=== PATIENT | male | born 1990 | race Two or more races ===

== ENCOUNTER 2021-02-02 18:13 | Emergency (ER) | payer SELFPAY ==
[~2021-02-02] VITALS: Ht 170.2 cm; Wt 70.5 kg
[2021-02-02] MEDS ORDERED: LIDOCAINE 1%/EPI 1:100,000 20 ML VIAL. INJ ONE (19:00)
[2021-02-02] MEDS ORDERED: DIPH,PERTUSS(ACELL),TET VAC/PF 0.5 ML SYRINGE. VAX IM ONE (19:00)
--- NOTE | 2021-02-02 19:06 | PHYS DOC ---
Past Medical History Past Medical History: No Pertinent History (CALLI SAM APRN) Past Surgical History: No Surgical History (CALLI SAM APRN) Smoking Status: Never Smoker Alcohol Use: Rarely (CALLI SAM APRN) General Adult EDM: Chief Complaint: LACERATION/AVULSION HPI: HPI: Patient is a 30 year old male who presents to the ED today with left ash laceration, patient got cut by a sheet metal. (CALLI SAM APRN) Review of Systems: Review of Systems: Constitutional: Denies fever or chills. [] Musculoskeletal: Denies back pain or joint pain. [] Integument: Reports left ash laceration Neurologic: Denies headache, focal weakness or sensory changes. [] Psychiatric: Denies depression or anxiety. [] (CALLI SAM APRN) Heart Score: C/O Chest Pain: N/A Risk Factors: Risk Factors: DM, Current or recent (<one month) smoker, HTN, HLP, family history of CAD, obesity. Risk Scores: Score 0 - 3: 2.5% MACE over next 6 weeks - Discharge Home Score 4 - 6: 20.3% MACE over next 6 weeks - Admit for Clinical Observation Score 7 - 10: 72.7% MACE over next 6 weeks - Early Invasive Strategies (CALLI SAM APRN) Current Medications: Current Medications Medications (Trade) Dose Ordered Sig/Jacob Start Time Stop Time Status Last Admin Dose Admin Diphtheria/ Tetanus/Acell Pertussis (ADACEL TDap SYRINGE) 0.5 ml ONCE ONCE 02/02/21 19:00 02/02/21 19:01 UNV Lidocaine/ Epinephrine (LIDOCAINE 1%-EPI 1:100,000 Multi-Dose) 20 ml 1X ONCE 02/02/21 19:00 02/02/21 19:01 DC (CALLI SAM CUSTOMS AGENT) Allergies: Allergies: Allergies Coded Allergies Type Severity Reaction Last Updated Verified No Known Drug Allergies 02/02/21 No (CALLI SAM APRN) Physical Exam: PE: Constitutional: Well developed, well nourished, no acute distress, non-toxic appearance. [] Skin: Left ash with 2 lacerations. One laceration is roughly 8 cm long in C shape. The other laceration is roughly 2 cm long. There is no obvious tendon involvement. Full range of motion to the left lower extremity. +2 left pedal pulse. Cap refill less than 2 seconds to the left toes Back: No tenderness, no CVA tenderness. [] Extremities: No tenderness, no cyanosis, no clubbing, ROM intact, no edema. [] Neurologic: Alert and oriented X 3, normal motor function, normal sensory function, no focal deficits noted. [] Psychologic: Affect normal, judgement normal, mood normal. [] (CALLI SAM APRN) Current Patient Data: Vital Signs: Vital Signs Date Time Temp Pulse Resp B/P (MAP) Pulse Ox O2 Delivery O2 Flow Rate FiO2 02/02/21 18:50 98.2 93 18 129/58 (81) 97 Room Air 98.2 (CALLI SAM APRN) EKG: EKG: [] (CALLI SAM APRN) Radiology/Procedures: Radiology/Procedures: Laceration/Wound Repair Laceration/Wound Repair : [] Wound Location: Left lower extremity Wound's Depth, Shape: C-shaped and horizontal Wound Length (cm): 8 cm long and 2 cm long Wound Explored: clean Irrigated w/ Saline (ccs): 100 Betadine Prep?: Yes Anesthesia: Lidocaine with epinephrine Volume Anesthetic (ccs): 20ml Wound Repaired With: 8 cm laceration was repaired as follows. Internal laceration was closed with 5 interrupted sutures using 3.0 Vicryl. External laceration was closed with 19 interrupted sutures using 4.0, 3.0 and 5.0 Prolene. 2 cm laceration was closed with 5 interrupted sutures using four-point 0 Prolene. Progress : Wounds were covered with nonstick dressing (CALLI SAM APRN) Course & Med Decision Making: Course & Med Decision Making Pertinent Labs and Imaging studies reviewed. (See chart for details) This is a 30-year-old male patient presenting to the ED today with left ash lacerations, tetanus was updated, lacerations were closed as noted in procedures, wound care instructions and return precautions provided (CALLI SAM APRN) Course & Med Decision Making [] Patients Care and treatment plan provided by ER Nurse Practitioner. I was available for consult. Patient's chart reviewed. (JULIAN PLAZA DO) Becky Disclaimer: Becky Disclaimer: This electronic medical record was generated, in whole or in part, using a voice recognition dictation system. (CALLI SAM CUSTOMS AGENT) Departure Departure Impression: Primary Impression: Laceration of lower extremity Qualified Codes: S81.812A - Laceration without foreign body, left lower leg, initial encounter Disposition: HOME / SELF CARE / HOMELESS Condition: STABLE Referrals: NO PCP (PCP) Follow-up with your doctor or the emergency room in 7 days for stitches to be removed Patient Instructions: Laceration Care, Adult, [id number] Additional Instructions: You were seen for lacerations of the left lower extremity. Keep the areas clean and dry. You can remove the dressing tomorrow. Apply Neosporin to the areas twice a day for 7 days. Monitor the areas for signs of infection including but not limited to increased redness, warmth, yellow drainage from the areas and return to the ED if they occur. Follow-up with the emergency room or your own doctor in 7 days for suture removal CALLI SAM APRN Feb 02, 2021 19:06 JULIAN PLAZA DO Feb 05, 2021 18:29
[2021-02-02 20:12] VITALS: BP 104/55
== END 2021-02-02 20:13 | disposition home or self-care (01) ==
LOC: ER 18:13
DX: S81.812A Laceration without foreign body, left lower leg, initial encounter (principal); Y28.8XXA Contact with other sharp object, undetermined intent, initial encounter; Y93.89 Activity, other specified; Y92.89 Other specified places as the place of occurrence of the external cause; Y99.8 Other external cause status
CPT/HCPCS: 12004; 90471; 90715; 99283; J3490

== ENCOUNTER 2021-02-13 11:54 | Emergency (ER) | payer SELFPAY ==
[~2021-02-13] VITALS: Ht 177.8 cm; Wt 70.0 kg
[2021-02-13 12:07] VITALS: BP 116/65
[2021-02-13] MEDS ORDERED: CEPH500C PO (12:24)
--- NOTE | 2021-02-13 12:25 | ED.ADGEN ---
Past Medical History Past Medical History: No Pertinent History Past Surgical History: No Surgical History Smoking Status: Never Smoker Alcohol Use: Rarely General Adult EDM: Chief Complaint: LOWER EXT PAIN HPI: HPI: Patient is a 30 year old male who presents emergency department for wound reevaluation. Patient states he had some stitches placed 11 days ago in his lower left extremity. He reports that he took the sutures out himself. Patient states that since yesterday the redness has increased and there has been a burning sensation. He denies any measured fever, or body aches. Patient states he did have some chills last night. He currently rates his pain a 5 out of 10 on the pain scale, he denies any alleviating or exacerbating factors. Review of Systems: Review of Systems: Complete ROS is negative unless otherwise noted in HPI. Allergies: Allergies: Allergies Coded Allergies Type Severity Reaction Last Updated Verified No Known Drug Allergies 02/02/21 No Physical Exam: PE: See Above Constitutional: Well developed, well nourished, no acute distress, non-toxic appearance. [] HENT: Normocephalic, atraumatic, bilateral external ears normal, nose normal. [] Eyes: PERRLA, EOMI, conjunctiva normal, no discharge. [] Neck: Normal range of motion, no stridor. [] Cardiovascular:Heart rate regular rhythm Lungs & Thorax: Respirations even and unlabored, no retractions, no respiratory distress Skin: warm, dry; healing wounds to the anterior lower left leg, no drainage, moderate erythema and warmth, appears infected Extremities: No cyanosis, ROM intact, no edema. [] Neurologic: Alert and oriented X 3, normal motor, normal sensory, no focal deficits noted. [] Psychologic: Affect normal, judgement normal, mood normal. [] Current Patient Data: Vital Signs: Vital Signs Date Time Temp Pulse Resp B/P (MAP) Pulse Ox O2 Delivery O2 Flow Rate FiO2 02/13/21 12:07 97.9 66 18 116/65 (82) 98 Room Air 97.9 EKG: EKG: [] Heart Score: C/O Chest Pain: No Risk Scores: Score 0 - 3: 2.5% MACE over next 6 weeks - Discharge Home Score 4 - 6: 20.3% MACE over next 6 weeks - Admit for Clinical Observation Score 7 - 10: 72.7% MACE over next 6 weeks - Early Invasive Strategies Radiology/Procedures: Radiology/Procedures: [] Course & Med Decision Making: Course & Med Decision Making Pertinent Labs and Imaging studies reviewed. (See chart for details) [] Becky Disclaimer: Becky Disclaimer: This electronic medical record was generated, in whole or in part, using a voice recognition dictation system. Departure Departure Impression: Primary Impression: Laceration of left lower leg with infection Disposition: HOME / SELF CARE / HOMELESS Condition: STABLE Referrals: NO PCP (PCP) Patient Instructions: Wound Infection, [id number] Additional Instructions: Fill the prescription and use it as directed. Cleanse the affected area with soap and water twice daily and apply antibiotic ointment. Tylenol or ibuprofen as needed for fever. Follow-up with your primary care doctor in 1 to 2 days for wound recheck, return to the ER if symptoms worsen or fever does not respond to medications. Scripts Cephalexin (CEPHALEXIN) 500 Mg Capsule 1 CAP PO QID for 10 Days, #40 CAP 0 Refills Prov: GRACE BOYLE APRN 02/13/21 Problem Qualifiers Primary Impression: Laceration of left lower leg with infection Encounter type: subsequent encounter Qualified Codes: S81.812D - Laceration without foreign body, left lower leg, subsequent encounter; L08.9 - Local infection of the skin and subcutaneous tissue, unspecified GRACE BOYLE APRN Feb 13, 2021 12:24
== END 2021-02-13 12:46 | disposition home or self-care (01) ==
LOC: ER 11:54
DX: S81.812D Laceration without foreign body, left lower leg, subsequent encounter (principal); L08.9 Local infection of the skin and subcutaneous tissue, unspecified; X58.XXXD Exposure to other specified factors, subsequent encounter
CPT/HCPCS: 99283

== ENCOUNTER 2021-05-08 09:18 | Emergency (ER) | payer SELFPAY ==
[~2021-05-08] VITALS: Ht 167.6 cm; Wt 69.0 kg
[~2021-05-08 09:18] MED LIST: CEPH500C PO
[2021-05-08 10:03] VITALS: BP 116/65
[2021-05-08] MEDS ORDERED: AMOX1TAB61 PO (10:21)
[2021-05-08] MEDS ORDERED: IBUP-1007 PO (10:21)
--- NOTE | 2021-05-08 10:21 | PHYS DOC ---
Past Medical History Past Medical History: No Pertinent History (ALEKS OTOOLE APRN) Past Surgical History: No Surgical History (ALEKS OTOOLE APRN) Smoking Status: Never Smoker Alcohol Use: Rarely (ALEKS OTOOLE APRN) General Adult EDM: Chief Complaint: KNEE SWELLING HPI: HPI: Patient is a 31 year old male presents to the emergency department complaining of pain to the right lower side of his knee started last Saturday evening, reports he did not take any pain medications, went to bed woke up noticing his knee was red and swollen. Patient reports taking a [id number] Advil which helped his pain some, rates his pain a 0 out of 10 when not moving, increases to an 8 out of 10 when ambulating. 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 Does not recall any acute injury to his right knee. Denies other physical complaints or physical concerns. Reports last tetanus immunization less than 5 years ago. (ALEKS OTOOLE APRN) Review of Systems: Review of Systems: 14 body systems of review of systems have been reviewed. See HPI for pertinent positives and negative responses, otherwise all other systems are negative, nonpertinent or noncontributory. Constitutional: Negative except as outlined in HPI above. Skin: Negative except as outlined in HPI above. Eyes: Negative except as outlined in HPI above. HENT: Negative except as outlined in HPI above. Respiratory: Negative except as outlined in HPI above. Cardiovascular: Negative except as outlined in HPI above. GI: Negative except as outlined in HPI above. : Negative except as outlined in HPI above. Musculoskeletal: Negative except as outlined in HPI above. Integument: Negative except as outlined in HPI above. Neurologic: Negative except as outlined in HPI above. Endocrine: Negative except as outlined in HPI above. Lymphatic: Negative except as outlined in HPI above. Psychiatric: Negative except as outlined in HPI above. (ALEKS OTOOLE APRN) Heart Score: C/O Chest Pain: No Risk Factors: Risk Factors: DM, Current or recent (<one month) smoker, HTN, HLP, family history of CAD, obesity. Risk Scores: Score 0 - 3: 2.5% MACE over next 6 weeks - Discharge Home Score 4 - 6: 20.3% MACE over next 6 weeks - Admit for Clinical Observation Score 7 - 10: 72.7% MACE over next 6 weeks - Early Invasive Strategies (ALEKS OTOOLE APRN) Allergies: Allergies: Allergies Coded Allergies Type Severity Reaction Last Updated Verified No Known Drug Allergies 02/02/21 No (ALEKS OTOOLE APRN) Physical Exam: PE: Constitutional: Well developed, well nourished, no acute distress, non-toxic appearance. 31-year-old male in no apparent distress. HENT: Normocephalic, atraumatic. Eyes: Conjunctiva normal, no discharge. Neck: Normal range of motion, no stridor. Cardiovascular: No cyanosis appreciated, distal cap refill less than 2 seconds. Lungs & Thorax: Patient is in no respiratory distress, no audible adventitious lung sounds appreciated. Abdomen: Nontender, no abnormalities noted. Skin: Warm, dry, no erythema, no rash. Back: No tenderness, no deformities. Extremities: No tenderness, no cyanosis, no clubbing, ROM intact, no edema. Except for right knee, erythematous at kneecap area measuring 7 cm in diameter, clearly demarcated borders, no drainage, no skin excoriation or central punctum appreciated, hot to touch. No fluctuant abscess appreciated. Neurologic: Alert and oriented X 3, normal motor function, normal sensory function, no focal deficits noted. Psychologic: Affect normal, judgement normal, mood normal. (ALEKS OTOOLE APRN) Current Patient Data: Vital Signs: Vital Signs Date Time Temp Pulse Resp B/P (MAP) Pulse Ox O2 Delivery O2 Flow Rate FiO2 05/08/21 10:03 98.6 88 16 116/65 (82) 98.6 (ALEKS OTOOLE APRN) EKG: EKG: [] (ALEKS OTOOLE APRN) Radiology/Procedures: Radiology/Procedures: [] (ALEKS OTOOLE APRN) Course & Med Decision Making: Course & Med Decision Making Pertinent Labs and Imaging studies reviewed. (See chart for details) 31-year-old male, vital signs reviewed, presents emergency department concerning right knee pain with redness and swelling since last Saturday evening. Bianca ent's physical examination concerning for cellulitis versus other infectious process, discussed patient case with ED attending physician Dr. Woods who examined the patient with bedside quick sono to rule out deep tissue infectious process/other concerning abnormalities. Dr. Woods agrees this is most likely a cellulitis, recommended Augmentin regimen. Discussed findings with patient, antibiotic use and side effects, strict follow-up with primary care soon, patient is amenable to ED discharge planning. Discussed with the patient all findings and diagnostic testing as well as the need to follow-up with their primary care provider for further evaluation and treatment or return to the ED if any new or worsening symptoms. Strict return precautions were also discussed at length, the patient voiced understanding and agreement with the discharge planning. The patient was nontoxic in appearance, in no apparent distress, and hemodynamically stable at the time of disposition. (ALEKS OTOOLE APRN) Course & Med Decision Making I discussed this case with the [facility] and evaluated patient myself. Exam with redness overlying the patella and the lateral aspect of the knee. [id number] ultrasound did not show any fluid collection/abscess, bursitis, or joint space effusion. There was soft tissue thickening consistent with cellulitis. The patient was able to range the knee to 90 degrees without significant pain, making septic arthritis much less likely. 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 Return precautions discussed at length. (KENZIE WOODS MD) Dragon Disclaimer: Becky Disclaimer: This electronic medical record was generated, in whole or in part, using a voice recognition dictation system. (ALEKS OTOOLE APRN) Departure Departure Impression: Primary Impression: Cellulitis of knee, right Disposition: HOME / SELF CARE / HOMELESS Condition: GOOD Referrals: NO PCP (PCP) Patient Instructions: Cellulitis Additional Instructions: You were seen today in the emergency department for right knee pain, ear examination is concerning for a skin infection called cellulitis. As we discussed at length I have prescribed you an oral antibiotic to take twice a day for the next 10 days. Please take as directed. If becoming significantly worse or you notice increased swelling or sudden increase in pain unrelieved by [id number] Naprosyn or ibuprofen, please return to the emergency department for reevaluation. I am attaching [facility] care physician groups to this document, please choose a primary health care physician for ongoing management of your knee pain. You may also use warm moist compresses to the knee to aid in the healing process. Thank you for visiting our Emergency Department. It was a pleasure taking care of you today in the emergency department and we appreciate you trusting us with your care. If any additional problems come up don't hesitate to return to visit us. Please follow up with your primary care provider so they can plan additional care if needed and know about the problem that you had. If symptoms worsen come back to the Emergency Department. Any concerning symptoms that start such as chest pain, shortness of air, weakness or numbness on one side of the body, running high fevers or any other concerning symptoms return to the ER. Scripts Ibuprofen (IBUPROFEN) 600 Mg Tablet 600 MG PO PRN Q6HRS PRN for INFLAMMATION, #20 TAB 0 Refills Prov: ALEKS OTOOLE APRN 05/08/21 Amoxicillin/Potassium Clav (AUGMENTIN 875-125 TABLET) 1 Each Tablet 1 TAB PO BID for skin infection for 10 Days, #20 TAB 0 Refills Prov: ALEKS OTOOLE APRN 05/08/21 ALEKS OTOOLE APRN May 08, 2021 10:21 KENZIE WOODS MD May 09, 2021 15:37
[2021-05-08] MEDS ORDERED: KETOROLAC 60 MG/2 ML VIAL. IM ONE (10:45)
[2021-05-08] MEDS ORDERED: AMOXICILLIN/K CLAV 875/125MG TABLET. PO ONE (10:45)
== END 2021-05-08 10:38 | disposition home or self-care (01) ==
LOC: ER 09:18
DX: L03.115 Cellulitis of right lower limb (principal)
CPT/HCPCS: 96372; 99283; J1885